=== PATIENT | female | born 2000 | race Caucasian/White ===

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

== ENCOUNTER 2020-04-01 15:47 | Outpatient (CLI) | payer BC ==
--- NOTE | 2020-04-01 16:05 | ULT ---
EXAM: US Breast Limited Lt PROVIDED CLINICAL HISTORY: Left breast mass COMPARISON: 09/28/2019 FINDINGS: Limited sonographic interrogation of the left breast was performed at the 12:00 position, redemonstra ting a solid, circumscribed, wider than tall hypoechoic mass. This demonstrates no significant interval change with respect to the prior examination. IMPRESSION: Sonographic findings compatible with fibroadenoma redemonstrated.
== END 2020-04-01 15:48 | disposition home or self-care (01) ==
LOC: BICULT 15:47
PROVIDERS: ATTEND Obstetrics & Gynecology
DX: R92.2 Inconclusive mammogram (principal)

== ENCOUNTER 2020-12-16 14:53 | Outpatient (CLI) | payer BC ==
--- NOTE | 2020-12-16 16:18 | ULT ---
RIGHT BREAST ULTRASOUND: 12/16/20 HISTORY: Palpable abnormality right breast. At the 11 o'clock position 3 cm from the nipple is a solid circumscribed mass measuring 1.5 x 1.9 cm in size. It has identical features to left breast lesion which has been followed since 12/12. Has tip acteristics most suggestive of a fibroadenoma. IMPRESSION: BIRADS 3: Probably Benign Finding Initial Short-Interval Follow-Up Suggested Initial short-term follow up (usually 6-month) examination. I would suggest a six month follow-up of the right breast to document stability. Findings were discus sed with the patient. POS: OFF
== END 2020-12-16 14:54 | disposition home or self-care (01) ==
LOC: BICULT 14:53
PROVIDERS: ATTEND Advanced Practice Midwife
DX: N63.11 Unspecified lump in the right breast, upper outer quadrant (principal)